=== PATIENT | female | born 1945 | race Caucasian/White ===

== ENCOUNTER 2021-08-24 11:10 | Observation (INO) ==
--- NOTE | 2021-08-24 11:31 | Emergency Department Note ---
Impression & Plan Open fracture of patella, Facial abrasion, Fall from standing ED Provider Note NAME: SPENCER HATCH AGE: 76 SEX: F ARRIVES VIA: Ambulance INFORMANT: Patient ED PROVIDER(S): Jean Paul Hall MD CHIEF COMPLAINT: Fall, knee pain PLAN: Disposition: Admit MEDICAL DECISION MAKING: The patient is a pleasant 76-year-old woman who presents to the emergency part via EMS after having mechanical fall when she was at a graduation green party at her grandson's fraternity and was looking forward and failed to see a step downward falling forward hitting her face and injuring her right knee which she was unable to get up due to the pain. She denies loss of consciousness patient reports she takes a baby aspirin daily but denies any anticoagulation. She reports feeling healthy prior to today and denies fevers, chills, cough congestion, GI or symptoms. The patient reports she is from [facility] near [place] and is visiting for her grandson's graduation. On arrival patient is uncomfortable no acute distress, afebrile stable vital signs. Minor contusion to the right lateral periorbital region with punctate superficial linear abrasions. She also has a superficial linear abrasion to the bridge of the nose. She has deformity of the right knee with range of motion limited secondary to pain. She has a punctate wound of the anterior aspect of the knee. Distal PMS intact. The patient was offered IM morphine for pain however she did not feel this was necessary at this time. Plain film was performed and demonstrated acute displaced transverse patella fracture. Note is made of overlying contusion with soft tissue gas raising the possibility of an open patella fracture. Small joint effusion is also seen. Fracture was further characterized on CT which demonstrates the comminuted displaced fractures of the right patella 2.2 cm of displacement. Soft tissue gas is again noted including gas within the fracture site consistent with open fracture given the patient's punctate wound. No gas is noted within the joint space. I did review the findings with the patient and her son at the bedside. I did inform her that this will require immediate repair with surgery today. It asked whether or not this could wait until she returns home however it was again reiterated that there is an open fracture and so the recommendation is for surgery today. She and her son report that they would be in agreement to stay here for surgery if that was the recommendation from orthopedics. Lab work was then ordered and the patient was ordered for prophylactic antibiotics with ceftriaxone given she had a listed allergy of a rash to amoxicillin. Facial abrasions cleaned and applied bacitracin by RN per my instruction. No repairs required. Case was discussed with DONNA Maza orthopedic surgery. Appreciate recommendations and will take the patient to the OR today. EKG without overt acute ischemia. CXR negative for acute cardiopulmonary process. WBC and platelets wnl. H/H 11.4/33.8 without prior values for comparison. Chemistry without acidosis. Cr. 1.28 without prior values for comparison. Electrolytes unremarkable. Triage Nursing notes reviewed and agree them. Prior medical records reviewed Vital Signs: reviewed and remarkable for no significant abnormalities Differential diagnosis: Fracture, dislocation, contusion, intra-abdominal, pneumothorax, intrathoracic, intracranial, neurologic, compartment syndrome, rhabdomyolysis, as well as other pathologies. ER treatment provided: See below. Diagnostics interpreted by me: ECG: NSR, 88 bpm, no ectopy, no overt ST elevation or depression. Cardiac Monitoring: An order for continuous cardiac monitoring was placed and demonstrated NSR, 88 bpm, no ectopy. Laboratory studies: See below Imaging studies: See below Consultation(s): DONNA Maza orthopedic surgery on-call. HPI: The patient is a pleasant 76-year-old woman who presents to the emergency part via EMS after having mechanical fall when she was at a graduation green party at her grandson's fraternity and was looking forward and failed to see a step downward falling forward hitting her face and injuring her right knee which she was unable to get up due to the pain. She denies loss of consciousness patient reports she takes a baby aspirin daily but denies any anticoagulation. She reports feeling healthy prior to today and denies fevers, chills, cough congestion, GI or symptoms. The patient reports she is from [facility] near [place] and is visiting for her grandson's graduation. ROS: See above HPI for pertinent positives & negatives. A total of 10 systems reviewed and were otherwise negative. VITALS:See Below PHYSICAL EXAMINATION: GENERAL: Awake, alert, uncomfortable-appearing, in no distress HENT: Normocephalic, Minor contusion to the right lateral periorbital region with punctate superficial linear abrasions. She also has a superficial linear abrasion to the bridge of the nose. Oropharynx unremarkable. EYES: Normal conjunctiva. Sclera non-icteric. EOMI. No nystamgus. PEARRL. NECK: Supple. No nuchal rigidity. FROM. No JVD. RESPIRATORY: Clear to auscultation. CARDIAC: Regular rate, normal rhythm. Extremities warm and well perfused. Pulses equal. ABDOMEN: Soft, non-distended. No tenderness to palpation. No rebound or guarding. No masses. RECTAL: Deferred. MUSCULOSKELETAL: Chest examination reveals no tenderness. The back is symmetrical on inspection without obvious abnormality. There is no CVA tenderness to palpation. Deformity of the right knee with range of motion limited secondary to pain. Punctate wound of the anterior aspect of the knee. Distal PMS intact. LOWER EXTREMITIES: Calves are equal size bilaterally and non-tender. No edema. No discoloration. NEURO: Normal sensorium. No sensory or motor deficits noted. SKIN: No rash or jaundice noted. Jean Paul Hall MD Past Med/Surg History Medical History Hyperlipidemia Hypertension Open fracture of patella Family History Other Family history non-contributory Social History Smoking Status: Former smoker Tobacco Type: Cigarettes Smoking End Date: "5 years ago"; Second Hand Exposure: No; Do You Dip or Chew Tobacco: No; Tobacco Cessation Education Requested by Patient: No Hx Alcohol Use: No Hx Substance Use: No Preferred Language: Botswanan Communication Ability: Effective Rural Car[employer] Required: No Beliefs That Will Affect Care: None Current Living Situation: Alone Other Information That Helps Us Care for You: No Feels Safe at Home: Yes Safety Concerns: Feels Safe At This Time Assistive Devices: Glasses and Hearing Aid - Bilateral Assistive Devices Comment: Reading glasses. Allergies Allergies Allergy/AdvReac Type Severity Reaction Status Date / Time amoxicillin [From Augmentin] Allergy Rash Verified 08/24/21 13:58 clavulanic acid Allergy Rash Verified 08/24/21 13:58 [From Augmentin] Home Meds Home Medications Medication Instructions Recorded Confirmed Aspirin Low Dose 81 mg PO DAILY 08/24/21 08/24/21 Lipitor 0 mg PO DAILY 08/24/21 08/24/21 Prevagen 20 mg PO DAILY 08/24/21 08/24/21 biotin 0 mg PO DAILY 08/24/21 08/24/21 calcium carb-Ca gluc 500 mg 0 tab PO DAILY 08/24/21 08/24/21 calcium-magnesium ox-Mg gluc 250 mg tablet (Calcium Magnesium) chondroitin sulfate A sodium 400 0 mg PO DAILY 08/24/21 08/24/21 mg capsule folic acid 800 mcg tablet 0.8 mg PO DAILY 08/24/21 08/24/21 geriatric [id number] 0 tab PO DAILY 08/24/21 08/24/21 glucosamine sulfate 500 mg tablet 500 mg PO DAILY 08/24/21 08/24/21 (Glucosamine) lisinopril 10 1 tab PO DAILY 08/24/21 08/24/21 mg-hydrochlorothiazide 12.5 mg tablet omega 3 350 mg-dha 235 mg-epa 90 0 cap PO DAILY 08/24/21 08/24/21 mg-fish oil 597 mg capsule,delay rel (Ronceverte-3) simvastatin 80 mg tablet 80 mg PO DAILY 08/24/21 08/24/21 vitamin B complex 0 cap PO DAILY 08/24/21 08/24/21 zinc citrate 16.7 mg chewable 0 mg PO DAILY 08/24/21 08/24/21 tablet Previous Rx's Medication Instructions Recorded acetaminophen 500 mg tablet 1,000 mg PO Q8 30 Days #180 tab 08/24/21 (Tylenol Extra Strength) aspirin 81 mg tablet,delayed 81 mg PO BID 30 Days #60 tab 08/24/21 release ondansetron 4 mg disintegrating 4 mg PO Q8H PRN 20 Days #30 tab 08/24/21 tablet tramadol 50 mg tablet 50 - 100 mg PO Q6H PRN #30 tab 08/24/21 Results & Data (ED) Vital Signs Vital Signs - 24 hr 08/24/21 11:14 08/24/21 12:12 08/24/21 15:57 Temperature 36.9 C 36.3 C L Temperature Source Oral Temporal Artery Scan Pulse Rate 97 H Pulse Rate [Apical] 88 94 H Pulse Rhythm [Apical] Regular Respiratory Rate 18 18 18 Respiratory Effort / Characteristics Non-Labored Spontaneous Non-Labored Spontaneous Non-Labored Spontaneous Respiratory Depth Normal Normal Normal Respiratory Pattern Regular Regular Blood Pressure 148/92 H Blood Pressure [Right Arm] 147/79 H 168/96 H Blood Pressure Mean 110 Blood Pressure Mean [Right Arm] 101 120 Blood Pressure Position Sitting Blood Pressure Position [Right Arm] Sitting Semi-fowlers Pulse Oximetry 97 98 94 Oxygen Delivery Method Room Air Room Air Oxymask Oxygen Flow Rate 5 Sepsis Recent Fever Within 48 Hours No Sepsis New/Unexplained Change in Mental Status N/A Sepsis Action Taken by Nursing No Action Required Laboratory Data Attestation: I reviewed the patient's lab results. Result diagrams: 08/24/21 13:01 08/24/21 13:01 Lab Results 08/24/21 08/24/21 08/24/21 Range/Units 13: 13: 13:01 WBC 8.98 (4.8-10.8) K/uL RBC 3.61 L (4.2-5.4) M/uL Hgb 11.4 L (12.0-16.0) g/dL Hct 33.8 L (37-47) % MCV 93.6 (80-100) fL MCH 31.6 (25-34) pg MCHC 33.7 (32-36) g/dL RDW Std Deviation 46.8 H (36.4-46.3) fL RDW Coeff of Jyoti 13.5 (11.5-14.5) % Plt Count 231 (130-400) K/uL MPV 10.0 (7.4-10.4) fL Immature Gran % (Auto) 0.2 % Neut % (Auto) 83.2 % Lymph % (Auto) 9.6 % Boone % (Auto) 6.1 % Eos % (Auto) 0.8 % Baso % (Auto) 0.1 % Neut # (Auto) 7.47 H (1.4-6.5) K/uL Lymph # (Auto) 0.86 L (1.2-3.4) K/uL Boone # (Auto) 0.55 (0.11-0.59) K/uL Eos # (Auto) 0.07 (0-0.5) K/uL Baso # (Auto) 0.01 (0-0.2) K/uL Immature Gran # (Auto) 0.02 (0.00-0.02) K/uL PT 10.4 (9.0-12.0) Seconds INR 1.0 (0.9-1.1) Sodium 135 L (136-145) mmol/L Potassium 3.9 (3.5-5.1) mmol/L Chloride 101 (98-107) mmol/L Carbon Dioxide 25 (21-32) mmol/L Anion Gap 9 (3-11) BUN 26 H (6-23) mg/dl Creatinine 1.28 H (0.6-1.2) mg/dl Est Cr Clr Drug Dosing 37.1 ml/min Est GFR ( Amer) 46.7 ml/min Est GFR (Non-Af Amer) 40.3 ml/min BUN/Creatinine Ratio 20.3 H (10-20) Glucose 98 (70-99(Fasting)) mg/dl Calcium 9.7 (8.5-10.1) mg/dl SARS-CoV-2, RNA, NAAT (NEGATIVE) Blood Type Antibody Screen Antibody Identification Antigen Identification Crossmatch 08/24/21 08/24/21 Range/Units 13:11 13:50 WBC (4.8-10.8) K/uL RBC (4.2-5.4) M/uL Hgb (12.0-16.0) g/dL Hct (37-47) % MCV (80-100) fL MCH (25-34) pg MCHC (32-36) g/dL RDW Std Deviation (36.4-46.3) fL RDW Coeff of Jyoti (11.5-14.5) % Plt Count (130-400) K/uL MPV (7.4-10.4) fL Immature Gran % (Auto) % Neut % (Auto) % Lymph % (Auto) % Boone % (Auto) % Eos % (Auto) % Baso % (Auto) % Neut # (Auto) (1.4-6.5) K/uL Lymph # (Auto) (1.2-3.4) K/uL Boone # (Auto) (0.11-0.59) K/uL Eos # (Auto) (0-0.5) K/uL Baso # (Auto) (0-0.2) K/uL Immature Gran # (Auto) (0.00-0.02) K/uL PT (9.0-12.0) Seconds INR (0.9-1.1) Sodium (136-145) mmol/L Potassium (3.5-5.1) mmol/L Chloride (98-107) mmol/L Carbon Dioxide (21-32) mmol/L Anion Gap (3-11) BUN (6-23) mg/dl Creatinine (0.6-1.2) mg/dl Est Cr Clr Drug Dosing ml/min Est GFR ( Amer) ml/min Est GFR (Non-Af Amer) ml/min BUN/Creatinine Ratio (10-20) Glucose (70-99(Fasting)) mg/dl Calcium (8.5-10.1) mg/dl SARS-CoV-2, RNA, NAAT NEGATIVE (NEGATIVE) Blood Type O Negative Antibody Screen POSITIVE A Antibody Identification Anti-D Antigen Identification C Antigen - NEGATIVE Crossmatch See Detail Administered Medications Acetaminophen (Acetaminophen 500 Mg Tab) 1,000 mg PO Q8 [facility] Stop: 09/23/21 21:59 Last Admin: 08/24/21 21:13 Dose: 1,000 mg Documented by: [id number] Ascorbic Acid (Ascorbic Acid 500 Mg Tab) 500 mg PO BIDM [facility] Stop: 09/23/21 17:29 Last Admin: 08/24/21 18:29 Dose: 500 mg Documented by: [id number] Aspirin (Aspirin 81 Mg Ectab) 81 mg PO BID [facility] Stop: 09/23/21 20:59 Last Admin: 08/24/21 21:13 Dose: 81 mg Documented by: [id number] Docusate Sodium (Docusate Sodium 100 Mg Cap) 100 mg PO BID [facility] Stop: 09/23/21 20:59 Last Admin: 08/24/21 21:13 Dose: 100 mg Documented by: [id number] Sodium Chloride (Nss 1000ml) 1,000 mls @ 100 mls/hr IV .Q10H [facility] Stop: 08/25/21 06:00 Last Admin: 08/24/21 18:30 Dose: 100 mls/hr Documented by: [id number] Cefazolin Sodium (Ancef 1000mg) 1,000 mg in 7.5 mls @ 2.5 mls/min IV Q8H [facility]; Protocol Stop: 08/25/21 06:02 Last Admin: 08/24/21 21:13 Dose: 2.5 mls/min Documented by: [id number] Ketorolac Tromethamine (Ketorolac Tromethamine 15 Mg/Ml Vial) 15 mg IV Q6H [facility] Stop: 08/25/21 12:01 Last Admin: 08/24/21 18:29 Dose: 15 mg Documented by: [id number] Sennosides (Senna 8.6 Mg Tab) 17.2 mg PO HS [facility] Stop: 09/23/21 20:59 Last Admin: 08/24/21 21:13 Dose: 17.2 mg Documented by: [id number] Discontinued Medications Bupivacaine HCl (Bupivacaine 0.5 % 5 Mg/1 Ml Mpf 30ml Vial) Confirm Administered Dose 30 ml .ROUTE .STK-MED ONE Stop: 08/24/21 14:03 Last Admin: 08/24/21 15:33 Dose: 30 ml Documented by: [id number] Cefazolin Sodium (Cefazolin 330 Mg/Ml 1 Gm Vial) Confirm Administered Dose 990 mg .ROUTE .STK-MED ONE Stop: 08/24/21 14:03 Last Admin: 08/24/21 15:33 Dose: 990 mg Documented by: [id number] Diphtheria/Pertussis/Tetanus Vacc (Diphtheria/Tetanus/Pertussis 0.5 Ml Syr/Vial) 0.5 ml IM .ONCE ONE Stop: 08/24/21 12:43 Last Admin: 08/24/21 13:12 Dose: 0.5 ml Documented by: [id number] Epinephrine HCl (Epinephrine Inj 1 Mg/Ml Amp) Confirm Administered Dose 1 mg .ROUTE .STK-MED ONE Stop: 08/24/21 14:02 Last Admin: 08/24/21 15:33 Dose: 0.15 mg Documented by: [id number] Fentanyl Citrate (Fentanyl Citrate 100 Mcg/2 Ml Vial) 50 mcg IV Q5M PRN PRN Reason: PACU Use Only-Pain Stop: 08/24/21 21:56 Last Admin: 08/24/21 16:03 Dose: 50 mcg Documented by: [id number] Fentanyl Citrate (Fentanyl Citrate 100 Mcg/2 Ml Vial) Confirm Administered Dose 100 mcg .ROUTE .STK-MED ONE Stop: 08/24/21 16:05 Last Admin: 08/24/21 18:23 Dose: Not Given Documented by: [id number] Sodium Chloride (Nss 1000ml) 1,000 mls @ 125 mls/hr IV .Q8H [facility] Stop: 09/23/21 12:44 Last Infusion: 08/24/21 16:55 Dose: 0 mls/hr Documented by: [id number] Admin: 08/24/21 12:50 Dose: 125 mls/hr Documented by: [id number] Acetaminophen (Ofirmev) 1,000 mg in 100 mls @ 400 mls/hr IV NOW STA Stop: 08/24/21 12:56 Last Infusion: 08/24/21 13:22 Dose: 0 mls/hr Documented by: [id number] Admin: 08/24/21 12:50 Dose: 400 mls/hr Documented by: [id number] Ceftriaxone Sodium (Rocephin) 2,000 mg in 70 mls @ 140 mls/hr IV NOW STA Stop: 08/24/21 13:13 Last Infusion: 08/24/21 13:22 Dose: 0 mls/hr Documented by: [id number] Admin: 08/24/21 12:52 Dose: 140 mls/hr Documented by: [id number] Cefazolin Sodium (Ancef 1000mg) 1,000 mg in 7.5 mls @ 2.5 mls/min IV ONCE ONE Stop: 08/24/21 15:37 Last Admin: 08/24/21 14:29 Dose: 2.5 mls/min Documented by: [id number] Imaging Data Radiologist's Impression: Head CT 08/24/21 11:22 CT OF THE HEAD WITHOUT CONTRAST CLINICAL HISTORY: Pain following fall. COMPARISON STUDY: No previous studies for comparison. CT DOSE: 537.48 mGy.cm TECHNIQUE: Helical axial images of the head were obtained without IV contrast. Automated exposure control was utilized for the study. A dose lowering technique was utilized adhering to the principles of ALARA. FINDINGS: No acute intracranial hemorrhage, midline shift or mass effect is present. The ventricular system is unremarkable. The basal cisterns are patent. No extra-axial collections are present. There are no findings to suggest acute dural sinus thrombosis or acute territorial infarct. No significant calvarial abnormalities are present. Visualized portions of the sinuses and mastoid air cells are clear. IMPRESSION: 1. No acute intracranial findings. 2. No acute calvarial fracture. ACT 112: Negative or not required by law. Electronically signed by: Adrián Mckenna M.D. 08/24/2021 12:11 PM Hip/Pelvis X-Ray 08/24/21 11:22 XR hip RT 2V w pelvis CLINICAL HISTORY: Pain following fall. COMPARISON: None FINDINGS: Sacroiliac joints and symphysis pubis are intact. There is no acute fracture within the pelvis or hips. Degenerative changes of the symphysis are present. There is mild bilateral hip osteophytosis. IMPRESSION: No acute fracture within the pelvis or hips. ACT 112: Negative or not required by law. Electronically signed by: Adrián Mckenna M.D. 08/24/2021 11:59 AM Knee X-Ray 08/24/21 11:22 XR knee RT 1 or 2V routine CLINICAL HISTORY: fall pain COMPARISON: None FINDINGS: Anterior knee soft tissue swelling is noted. Associated lucencies represent soft tissue gas. There is a small right knee joint effusion. Note is made of an acute displaced comminuted transverse fracture through the patella. Fracture is displaced approximately 2.6 cm. No additional acute fractures are identified. Moderate vascular calcification is incidentally noted. IMPRESSION: 1. Acute displaced transverse patellar fracture. Overlying contusion with soft tissue gas. This raises the possibility of an open patellar fracture. 2. Small joint effusion. ACT 112: Negative or not required by law. Electronically signed by: Adrián Mckenna M.D. 08/24/2021 11:[address] 08/24/21 11:[address] WITHOUT CONTRAST CLINICAL HISTORY: pain, patella fracture COMPARISON STUDY: Right knee radiographs performed earlier today. TECHNIQUE: Axial images of the right knee were obtained without IV contrast. Sagittal and coronal reconstructions were viewed. Automated exposure control was utilized for the study. A dose lowering technique was utilized adhering to the principles of ALARA. FINDINGS: Note is made of an acute comminuted displaced fracture of the right patella. Fracture is predominantly transverse in orientation. Fracture is displaced approximately 2.2 cm. Overlying soft tissue swelling is noted. In addition, soft tissue gas is noted, including gas within the fracture site. This represents an open fracture. No gas within the joint space is noted. A small right knee joint effusion is present. No acute fracture of the proximal right fibula or tibia is identified. There is no acute fracture the distal right femur. Mild degenerative changes of the right knee are present. No suspicious osseous lesions. IMPRESSION: 1. Acute open displaced comminuted right patellar fracture, as above. 2. Small right knee joint effusion. No additional fractures. ACT 112: Negative or not required by law. Electronically signed by: Adrián Mckenna M.D. 08/24/2021 12:19 PM Chest X-Ray 08/24/21 13:00 XR chest 1V portable CLINICAL HISTORY: Preoperative evaluation. COMPARISON STUDY: No previous studies for comparison. FINDINGS: Patient is mildly rotated. Linear left basilar opacity favors atelectasis or scarring. No consolidation to suggest pneumonia. Possible calcified granuloma within the right mid lung. Cardiac size is normal. No andrea dence for pulmonary edema. IMPRESSION: No acute cardiopulmonary findings. ACT 112: Negative or not required by law. Electronically signed by: Adrián Mckenna M.D. 08/24/2021 1:15 PM Discharge Plan Visit Data Chief Complaint: Fall Stated Complaint: GLF ED Provider: Jean Paul Hall Discharge Problem: Open fracture of patella, Facial abrasion, Fall from standing Patient Disposition: Admitted As Inpatient Discharge Instructions Interventions: ED Discharge Assessment Last Done: 08/24/21 13:57 Discharge Problem: Open fracture of patella Qualifiers: Encounter type: initial encounter Open fracture type: open type I or II Fracture morphology: comminuted Fracture alignment: displaced Laterality: right Qualified Code(s): S82.041B - Displaced comminuted fracture of right patella, initial encounter for open fracture type I or II Facial abrasion Qualifiers: Encounter type: initial encounter Qualified Code(s): S00.81XA - Abrasion of other part of head, initial encounter Fall from standing Qualifiers: Encounter type: initial encounter Qualified Code(s): W19.XXXA - Unspecified fall, initial encounter
--- NOTE | 2021-08-24 12:00 | XRay Report ---
XR hip RT 2V w pelvis CLINICAL HISTORY: Pain following fall. COMPARISON: None FINDINGS: Sacroiliac joints and symphysis pubis are intact. There is no acute fracture within the pe lvis or hips. Degenerative changes of the symphysis are present. There is mild bilateral hip osteophy tosis. IMPRESSION: No acute fracture within the pelvis or hips. ACT 112: Negative or not required by law. Electronically signed by: Adrián Mckenna M.D. 08/24/2021 11:59 AM
--- NOTE | 2021-08-24 12:00 | XRay Report ---
XR knee RT 1 or 2V routine CLINICAL HISTORY: fall pain COMPARISON: None FINDINGS: Anterior knee soft tissue swelling is noted. Associated lucencies represent soft tissue ga s. There is a small right knee joint effusion. Note is made of an acute displaced comminuted transver se fracture through the patella. Fracture is displaced approximately 2.6 cm. No additional acute frac tures are identified. Moderate vascular calcification is incidentally noted. IMPRESSION: 1. Acute displaced transverse patellar fracture. Overlying contusion with soft tissue gas. This raise s the possibility of an open patellar fracture. 2. Small joint effusion. ACT 112: Negative or not required by law. Electronically signed by: Adrián Mckenna M.D. 08/24/2021 11:58 AM
--- NOTE | 2021-08-24 12:13 | CT Scan Report ---
CT OF THE HEAD WITHOUT CONTRAST CLINICAL HISTORY: Pain following fall. COMPARISON STUDY: No previous studies for comparison. CT DOSE: 537.48 mGy.cm TECHNIQUE: Helical axial images of the head were obtained without IV contrast. Automated exposure con trol was utilized for the study. A dose lowering technique was utilized adhering to the principles o f ALARA. FINDINGS: No acute intracranial hemorrhage, midline shift or mass effect is present. The ventricular system is unremarkable. The basal cisterns are patent. No extra-axial collections are present. There are no findings to suggest acute dural sinus thrombosis or acute territorial infarct. No significant calvarial abnormalities are present. Visualized portions of the sinuses and mastoid air cells are kusum ar. IMPRESSION: 1. No acute intracranial findings. 2. No acute calvarial fracture. ACT 112: Negative or not required by law. Electronically signed by: Adrián Mckenna M.D. 08/24/2021 12:11 PM
--- NOTE | 2021-08-24 12:22 | CT Scan Report ---
RIGHT KNEE CT WITHOUT CONTRAST CLINICAL HISTORY: pain, patella fracture COMPARISON STUDY: Right knee radiographs performed earlier today. TECHNIQUE: Axial images of the right knee were obtained without IV contrast. Sagittal and coronal rec onstructions were viewed. Automated exposure control was utilized for the study. A dose lowering elsie hnique was utilized adhering to the principles of ALARA. FINDINGS: Note is made of an acute comminuted displaced fracture of the right patella. Fracture is pr edominantly transverse in orientation. Fracture is displaced approximately 2.2 cm. Overlying soft tis darlene swelling is noted. In addition, soft tissue gas is noted, including gas within the fracture site. This represents an open fracture. No gas within the joint space is noted. A small right knee joint e ffusion is present. No acute fracture of the proximal right fibula or tibia is identified. There is n o acute fracture the distal right femur. Mild degenerative changes of the right knee are present. No suspicious osseous lesions. IMPRESSION: 1. Acute open displaced comminuted right patellar fracture, as above. 2. Small right knee joint effusion. No additional fractures. ACT 112: Negative or not required by law. Electronically signed by: Adrián Mckenna M.D. 08/24/2021 12:19 PM
[2021-08-24] MEDS ORDERED: DIPHTHERIA/TETANUS/PERTUSSIS 0.5 ML SYR/VIAL IM ONE (12:42)
[2021-08-24] MEDS ORDERED: ACETAMINOPHEN 1,000 MG/100 ML VIAL IV STA (12:42)
[2021-08-24] MEDS ORDERED: cefTRIAXone SODIUM 2,000 MG/70 ML BAG IV STA (12:44)
[2021-08-24] MEDS ORDERED: SODIUM CHLORIDE 0.9% 1000ML 1,000 ML IV SCH ×2 (12:45→17:02)
--- NOTE | 2021-08-24 13:17 | XRay Report ---
XR chest 1V portable CLINICAL HISTORY: Preoperative evaluation. COMPARISON STUDY: No previous studies for comparison. FINDINGS: Patient is mildly rotated. Linear left basilar opacity favors atelectasis or scarring. No c onsolidation to suggest pneumonia. Possible calcified granuloma within the right mid lung. Cardiac si ze is normal. No evidence for pulmonary edema. IMPRESSION: No acute cardiopulmonary findings. ACT 112: Negative or not required by law. Electronically signed by: Adrián Mckenna M.D. 08/24/2021 1:15 PM
[2021-08-24 13:20] LABS: Basophils # (auto) 0.01 K/uL (0-0.2); Basophils % (auto) 0.1 %; Eosinophils # (auto) 0.07 K/uL (0-0.5); Eosinophils % (auto) 0.8 %; Hematocrit (blood only) 33.8 % (37-47); Hemoglobin 11.4 g/dL (12.0-16.0); Immature Granulocytes # (auto) 0.02 K/uL (0.00-0.02); Immature Granulocytes % (auto) 0.2 %; Lymphocytes # (auto) 0.86 K/uL (1.2-3.4); Lymphocytes % (auto) 9.6 %; Mean Corpuscular Hemoglobin 31.6 pg (25-34); Mean Corpuscular Hgb Conc 33.7 g/dL (32-36); Mean Corpuscular Volume 93.6 fL (80-100); Monocytes # (auto) 0.55 K/uL (0.11-0.59); Monocytes % (auto) 6.1 %; Neutrophils # (auto) 7.47 K/uL (1.4-6.5); Neutrophils % (auto) 83.2 %; Platelet Count 231 K/uL (130-400); RDW Coefficient of Variation 13.5 % (11.5-14.5); RDW Standard Deviation 46.8 fL (36.4-46.3); Red Blood Count 3.61 M/uL (4.2-5.4); White Blood Count 8.98 K/uL (4.8-10.8)
[2021-08-24] MEDS ORDERED: fentaNYL citrate 100 MCG/2 ML VIAL ONE ×3 (13:26→16:04)
[2021-08-24] MEDS ORDERED: MIDAZOLAM HCL 1 MG/ML 2ML VIAL ONE (13:26)
[2021-08-24] MEDS ORDERED: PROPOFOL IV EMULSION 10 MG/ML 20 ML VIAL IV ONE (13:30)
[2021-08-24] MEDS ORDERED: ONDANSETRON INJ 2 MG/ML 2 ML VIAL ONE (13:30)
[2021-08-24] MEDS ORDERED: LIDOCAINE 2% 2 ML VIAL/AMP(20MG/ML) INFIL ONE ×2 (13:30→14:32)
--- NOTE | 2021-08-24 13:41 | Anesthesiology Consultation ---
Date of Service August 24, 2021 Assessment & Plan (1) Encounter for pre-operative examination: Chart Review Chart Review: md physician dermatologist initiated History Surgery Operation Date: 08/24/21 13:15 Proposed Procedures p Poly Exchange - Chaitanya Baldwin MD Height/Weight Height: 5 ft 8 in Weight: 72.9 kg Allergies Allergy/AdvReac Type Severity Reaction Status Date / Time amoxicillin [From Augmentin] Allergy Rash Unverified 08/24/21 11:41 clavulanic acid Allergy Rash Unverified 08/24/21 11:41 [From Augmentin] Medications Home Medications Medication Instructions Recorded Confirmed Last Taken Aspirin Low Dose 81 mg PO DAILY 08/24/21 08/24/21 08/24/21 Lipitor 0 mg PO DAILY 08/24/21 08/24/21 08/24/21 Prevagen 20 mg PO DAILY 08/24/21 08/24/21 08/24/21 biotin 0 mg PO DAILY 08/24/21 08/24/21 08/24/21 calcium carb-Ca gluc 500 mg 0 tab PO DAILY 08/24/21 08/24/21 08/24/21 calcium-magnesium ox-Mg gluc 250 mg tablet (Calcium Magnesium) chondroitin sulfate A sodium 400 0 mg PO DAILY 08/24/21 08/24/21 08/24/21 mg capsule folic acid 800 mcg tablet 0.8 mg PO DAILY 08/24/21 08/24/21 08/24/21 geriatric egfkfxrx-iadj-flwt 0 tab PO DAILY 08/24/21 08/24/21 08/24/21 glucosamine sulfate 500 mg tablet 500 mg PO DAILY 08/24/21 08/24/21 08/24/21 (Glucosamine) lisinopril 10 1 tab PO DAILY 08/24/21 08/24/21 08/24/21 mg-hydrochlorothiazide 12.5 mg tablet omega 3 350 mg-dha 235 mg-epa 90 0 cap PO DAILY 08/24/21 08/24/21 08/24/21 mg-fish oil 597 mg capsule,delay rel ([place]-3) simvastatin 80 mg tablet 80 mg PO DAILY 08/24/21 08/24/21 08/24/21 vitamin B complex 0 cap PO DAILY 08/24/21 08/24/21 08/24/21 zinc citrate 16.7 mg chewable 0 mg PO DAILY 05/12/0808/24/21 08/24/21 tablet Active Medications Generic Name Dose Route Start Last Admin Trade Name Justus PRN Reason Stop Dose Admin Sodium Chloride 1,000 mls @ 125 mls/hr 08/24/21 12:45 08/24/21 12:50 Nss 1000ml IV 09/23/21 12:44 125 mls/hr .Q8H MARIANNA Administration Social History Smoking Status: Former smoker Physical Exam Vital Signs Last Vital Signs Temp 98.4 F 08/24/21 11:14 Pulse 88 08/24/21 12:12 Resp 18 08/24/21 12:12 BP 147/79 H 08/24/21 12:12 Pulse Ox 98 08/24/21 12:12 Testing Laboratory Results 08/24/21 13:01 Electrocardiogram Date: 08/24/21 Normal sinus rhythm, rate 88 bpm Possible Left atrial enlargement Borderline ECG No previous ECGs available Chest X-Ray Date: 08/24/21 Findings: + NAD
[2021-08-24 13:43] LABS: Prothrombin Time 10.4 Seconds (9.0-12.0)
[2021-08-24 13:51] LABS: BUN Creatinine Ratio 20.3 (10-20); Calcium 9.7 mg/dl (8.5-10.1); Creatinine Clr Calc Pharmacy 37.1 ml/min; Est GFR (African American) 46.7 ml/min; Est GFR (Non-African American) 40.3 ml/min; Potassium 3.9 mmol/L (3.5-5.1)
--- NOTE | 2021-08-24 13:51 | History & Physical Report ---
Date of Service August 24, 2021 Assessment & Plan (1) Open fracture of patella: Patient has a grade 1 open displaced comminuted patella fracture with disruption of the extensor mechanism. She is got some abrasions on her face but nothing to serious that needs more urgent management. She has been given some Rocephin in the ER. Tetanus is up-to-date. I discussed treatment options with the patient today. Considering this open the nature of this fracture this is some that is urgent and needs to be taken the operating room for irrigation debridement and addressing the fracture. This gives her best chance of a good and most successful recovery. Based on the fracture which probably can be required taking out some of the pieces and repairing the extensor mechanism. We will going proceed with irrigation debridement, partial patellectomy me, extensor mechanism repair. The risk meant this procedure explained the patient could been a limited to DVT PE infection neurological injury vascular bleeding palm pain incomplete relief of symptoms need for further surgery in future and failure of the repair. Patient understands and desires to proceed informed consent was obtained. History of Present Illness Chief Complaint: . Right knee injury. Primary Care Provider: Yvonne Bravo . Patient is 76-year-old female from the [facility] who was up. Here at her grandsons graduation when she was out walking and missed a step and stumbled and landed on her right knee and also on her face. This happened earlier today. She had the cute onset of pain and discomfort. She was brought to the emergency room where x-rays revealed a displaced patella fracture. There is some air in the subcu tissues with a's very small puncture wound. We are consulted for evaluation. She denies any pre-existing knee problems. Says she did hit her face but no loss of consciousness and no neck pain. Her last food was a breakfast sandwich at about 9:00 this morning. Allergies Allergy/AdvReac Type Severity Reaction Status Date / Time amoxicillin [From Augmentin] Allergy Rash Unverified 08/24/21 11:41 clavulanic acid Allergy Rash Unverified 08/24/21 11:41 [From Augmentin] Home Medications Medication Instructions Recorded Confirmed Type Aspirin Low Dose 81 mg PO DAILY 08/24/21 08/24/21 History Lipitor 0 mg PO DAILY 08/24/21 08/24/21 History Prevagen 20 mg PO DAILY 08/24/21 08/24/21 History biotin 0 mg PO DAILY 08/24/21 08/24/21 History calcium carb-Ca gluc 500 mg 0 tab PO DAILY 08/24/21 08/24/21 History calcium-magnesium ox-Mg gluc 250 mg tablet (Calcium Magnesium) chondroitin sulfate A sodium 400 0 mg PO DAILY 08/24/21 08/24/21 History mg capsule folic acid 800 mcg tablet 0.8 mg PO DAILY 08/24/21 08/24/21 History geriatric kqqlnnee-fluv-jacg 0 tab PO DAILY 08/24/21 08/24/21 History glucosamine sulfate 500 mg tablet 500 mg PO DAILY 08/24/21 08/24/21 History (Glucosamine) lisinopril 10 1 tab PO DAILY 08/24/21 08/24/21 History mg-hydrochlorothiazide 12.5 mg tablet omega 3 350 mg-dha 235 mg-epa 90 0 cap PO DAILY 08/24/21 08/24/21 History mg-fish oil 597 mg capsule,delay rel ([place]-3) simvastatin 80 mg tablet 80 mg PO DAILY 08/24/21 08/24/21 History vitamin B complex 0 cap PO DAILY 08/24/21 08/24/21 History zinc citrate 16.7 mg chewable 0 mg PO DAILY 08/24/21 08/24/21 History tablet Past Med/Surg History Medical History (Updated 08/24/21 @ 13:49 by Chaitanya Baldwin MD) Open fracture of patella Social History Smoking Status: Former smoker Tobacco Type: Cigarettes Feels Safe at Home: Yes Review of Systems All systems reviewed & are unremarkable except as noted in HPI & below. Physical Exam . Physical examination reveals a pleasant elderly female lying in bed in no acute distress. Her HEENT exam reveals multiple abrasions on her face and a bit of a black and blue eye on the right side. All abrasions appear pretty superficial. Her neck is supple with no lymphadenopathy. She has no cervical spine tenderness and normal neck range of motion. Lungs clear to auscultation. Heart is a regular rate and rhythm. Ab soft nontender nondistended extremities grossly neuro vas intact up as follows. General musculoskeletal exam reveals painless palpation and range of motion of her cervical and thoracic and lumbar spine. She does have some abrasions on her face. She has painless and full range of motion of both upper extremities and left lower extremity. Examination of the right knee and leg reveals a significant bruise and hematoma the front of her knee. There is to the small areas of a puncture wound with some dried blood on the front of her knee. She is unable to do a straight leg raise. There is no varus or valgus instability. She can dorsiflex and plantarflex her foot appropriately. Results & Data Results & Data Laboratory Results . Diagnostic Findings . X-rays of the right knee reveal a comminuted displaced patella fracture. It severely comminuted. There is a little bit of air in the subcutaneous tissues and a point to the inferior pole of the patella. CT scan confirms a comminuted patella fracture. There is some air in the subcutaneous tissues as well. PG Care Time/CCT Total # of Minutes Spent Total Time Spent with Patient: Total time spent is greater than 50% in coordination of care (as documented) at patient's floor/unit and/or counseling patient: Coding Level of Care Code 19884 Initial Inpt Care Lvl 3 Diagnoses Open fracture of patella S82.009B
[2021-08-24] MEDS ORDERED: ONDANSETRON INJ 2 MG/ML 2 ML VIAL IV PRN ×2 (13:56→17:02)
[2021-08-24] MEDS ORDERED: ePHEDrine sulfate 50 MG/ML AMP IV PRN (13:56)
[2021-08-24] MEDS ORDERED: ATROPINE SULFATE 0.1 MG/ML 10ML SYR IV PRN (13:56)
[2021-08-24] MEDS ORDERED: fentaNYL citrate 100 MCG/2 ML VIAL IV PRN (13:56)
[2021-08-24] MEDS ORDERED: EPINEPHrine INJ 1 MG/ML AMP ONE (14:01)
[2021-08-24] MEDS ORDERED: ceFAZolin 330 MG/ML 1 GM VIAL ONE ×2 (14:02→14:28)
[2021-08-24] MEDS ORDERED: BUPIVACAINE 0.5 % 5 MG/1 ML MPF 30ML VIAL ONE (14:02)
[2021-08-24] MEDS ORDERED: PHENYLEPHRINE HCL 10 MG/ML VIAL ONE (14:32)
[2021-08-24] MEDS ORDERED: SUCCINYLCHOLINE CHLORIDE 20 MG/ML 10 ML VIAL IV ONE (14:33)
[2021-08-24] MEDS ORDERED: DEXAMETHASONE SOD INJ 4 MG/ML VIAL ONE (14:33)
[2021-08-24] MEDS ORDERED: ROCURONIUM BROMIDE 10 MG/ML 5 ML VIAL IV ONE (14:33)
[2021-08-24] MEDS ORDERED: ceFAZolin 1000MG 1,000 MG/7.5 ML SYR IV ONE (15:35)
--- NOTE | 2021-08-24 16:05 | Operative Report ---
PG Post Operative Report Pre & Post Diagnosis Operation Date: 08/24/21 13:15 Pre-Op Diagnosis: Grade 1 open severely comminuted fracture of patella Post-Op Diagnosis: Grade 1 open severely comminuted fracture of patella I identified the patient and participated in the time-out.: Yes Procedure Operation Date: 08/24/21 13:15 Actual Procedures p right knee irrigation and debridement and partial patellectomy and extensor mechanism repair - Chaitanya Baldwin MD Surgeon Chaitanya Baldwin MD Owner Oral Surgeon None Estimated Blood Loss 20 Findings Consistent with Post-Op Diagnosis Operative findings revealed a small puncture wound through the anterior aspect of the knee. There is no gross contamination. Large hemarthrosis. Severely comminuted patella fracture with multiple very small pieces with osteopenia. Specimens None Anesthesia Type General Complications none Disposition Accompanied Patient To Recovery: No Indications Patient is a 76-year-old female was visiting from out of town for her grandsons graduation. As she was at the [employer] when she stumbled over a step and landed and injured her right knee. She cute onset of pain patient brought the emergency room x-ray revealed a comminuted displaced patella fracture. She had some small little abrasions and wounds in the front of her knee and there was clearly an area in the fracture site on x-ray and CT scan. The patient indicated for urgent irrigation debridement and partial patellectomy me and extensor mechanism repair. Description of Procedure The patient was taken to the operating, identified, placed on the operating table supine position protectors were properly padded. She did get Rocephin in the ER and 1 g of Ancef in the operating room. A general anesthetic was imple mented. A right thigh tent was then placed. The right lower extremity was then scrubbed with Hibiclens then prepped with ChloraPrep and draped in usual sterile fashion. The right leg was elevated exsanguinated with use of an Esmarch in terms playset 300 mmHg. An anterior approach of the right knee was then performed through an anterior incision centered over the patella and the fracture site. Sharp dissection scalp through subcutaneous tissue directly down the fracture site. Full-thickness flaps were developed medially and laterally. I then irrigated the wound extensively. We irrigated the end of the patella and also curetted it. I assessed the comminution there was severe comminution particular the inferior pole so I elected to take out the inferior pole of the patella. The superior pole was by far the largest piece. I irrigated the bone edges. We irrigated the entire knee joint extensively. We then changed gloves. I then irrigated the entire wound again with 3 L of pulsatile lavage solution. Attention then drawn toward the repair. 3 drill holes were drilled made through the inferior pole patella extending from the inferior to the superior pole. Some passing sutures were placed. I used to a #[address] suture in the patella tendon using a Krakw type stitch. 1 suture was placed medially and 1 laterally. The sutures were then passed through the patella using the previously placed passing sutures. The patella was pulled down and tied to the patella tendon and we got excellent approximation. I could then bend the knee to 90 degrees without any signs of any gapping at all. I then repaired the medial and lateral retinacular extensions with #1 PDS suture in a hgibfx-pl-ohpii fashion. The knee was injected with 30 cc of half percent Marcaine with epinephrine. The tourniquet was let down for turn time 40 minutes. Hemostasis assured use electrocautery. The subcutaneous tissues were then closed with 2-0 Vicryl suture in a buried i nterrupted fashion. The skin was closed with a 3-0 nylon suture in a combination of horizontal mattress and simple fashion sutures. The was then cleaned and dried and a sterile dressing was Xeroform, 4 x 4's, ABD pad, sterile cast padding, Dion bandage, knee immobilizer were applied. Patient then brought out of general anesthesia and transferred to the recovery room in stable condition. The patient tolerated the procedure well and there were no complications. I attest to the content of the Intraoperative Record and any orders documented therein. Any exceptions are noted below.
--- NOTE | 2021-08-24 16:38 | Anesthesiology Progress Note ---
Date of Service August 24, 2021 Anesthesia Post Procedure Vital Signs Vital Signs: Temp Pulse Pulse Resp BP BP Pulse Ox 08/24/21 16:25 96 H 16 156/86 H 95 08/24/21 16:15 96 H 16 158/80 H 95 08/24/21 16:05 94 H 18 156/93 H 97 08/24/21 15:57 97.3 F L 94 H 18 168/96 H 94 08/24/21 12:12 88 18 147/79 H 98 08/24/21 11:14 98.4 F 97 H 18 148/92 H 97 Pain Intensity Right Knee: Pain Intensity: 3 Transfer of Care Handoff Completed per policy Notes Mental Status: alert / awake / arousable and participated in evaluation Patient Amnestic to Procedure: Yes Nausea / Vomiting: adequately controlled Pain: adequately controlled Airway Patency, RR, SpO2: stable & adequate BP & HR: stable & adequate Hydration State: stable & adequate Anesthetic Complications: no major complications apparent and Pt Satisfied with anesthetic care
[2021-08-24] MEDS ORDERED: NALOXONE HCL 0.4 MG/1 ML VIAL/CARP IV PRN (17:02)
[2021-08-24] MEDS ORDERED: MAGNESIUM HYDROXIDE SUSP 30 ML UDC PO PRN (17:02)
[2021-08-24] MEDS ORDERED: HYDROmorphone INJ 0.5 MG/0.5 ML SYR IV PRN (17:02)
[2021-08-24] MEDS ORDERED: METOCLOPRAMIDE HCL INJ 5 MG/ML 2 ML VIAL IV PRN (17:02)
[2021-08-24] MEDS ORDERED: traMADol HCL 50 MG TABLET PO PRN (17:02)
[2021-08-24] MEDS ORDERED: bisacodyL 10 MG SUPP PR PRN (17:02)
[2021-08-24] MEDS ORDERED: ALUMINUM/MAGNESIUM SUSP 30 ML UDC PO PRN (17:02)
[2021-08-24] MEDS: ASCORBIC ACID 500 MG TAB PO SCH (18:29)
[2021-08-24] MEDS: KETOROLAC TROMETHAMINE 15 MG/ML VIAL IV SCH ×2 (18:29→23:33)
[2021-08-24] MEDS ORDERED: SENNA 8.6 MG TAB PO SCH (21:00)
[2021-08-24] MEDS: DOCUSATE SODIUM 100 MG CAP PO SCH (21:13)
[2021-08-24] MEDS: ACETAMINOPHEN 500 MG TAB PO SCH (21:13)
[2021-08-24] MEDS: ceFAZolin 1000MG 1,000 MG/7.5 ML SYR IV SCH (21:13)
[2021-08-24] MEDS: ASPIRIN 81 MG ECTAB PO SCH (21:13)
[2021-08-24 21:35] LABS: Appearance Urine Clear (Clear); Bacteria Urine Automated Negative (Negative); Bilirubin Urine Negative (Negative); Blood Urine Negative (Negative); Cast Urine Automated 0 /lpf (0-5); Color Urine Yellow; Glucose Urine UA Negative (Negative); Ketones Urine Negative (Negative); Leukocyte Esterase Urine Trace (Negative); Nitrite Urine Negative (Negative); Protein Urine Negative (Negative); RBC Urine Automated 0-4 /hpf (0-4); Specific Gravity Urine 1.012 (1.000-1.030); Urobilinogen Urine Negative (Negative)
[2021-08-25] MEDS: KETOROLAC TROMETHAMINE 15 MG/ML VIAL IV SCH (06:14)
[2021-08-25] MEDS: ceFAZolin 1000MG 1,000 MG/7.5 ML SYR IV SCH (06:14)
[2021-08-25] MEDS: ACETAMINOPHEN 500 MG TAB PO SCH (06:14)
--- NOTE | 2021-08-25 06:17 | Electrocardiogram Report ---
Test Reason : Blood Pressure : / mmHG Vent. Rate : 088 BPM Atrial Rate : 088 BPM P-R Int : 188 ms QRS Dur : 088 ms QT Int : 378 ms P-R-T Axes : 079 039 056 degrees QTc Int : 457 ms Normal sinus rhythm Possible Left atrial enlargement Borderline ECG No previous ECGs available Confirmed by Bala Garcia ([id number]) on 08/25/2021 6:17:30 AM Referred By: REFERRED SELF Confirmed By:Bala Garcia
[2021-08-25 07:03] LABS: Hematocrit (blood only) 29.1 % (37-47); Hemoglobin 9.8 g/dL (12.0-16.0); Mean Corpuscular Hemoglobin 31.5 pg (25-34); Mean Corpuscular Hgb Conc 33.7 g/dL (32-36); Mean Corpuscular Volume 93.6 fL (80-100); Platelet Count 210 K/uL (130-400); RDW Coefficient of Variation 13.6 % (11.5-14.5); RDW Standard Deviation 46.7 fL (36.4-46.3); Red Blood Count 3.11 M/uL (4.2-5.4)
[2021-08-25 07:09] LABS: BUN Creatinine Ratio 18.2 (10-20); Calcium 8.8 mg/dl (8.5-10.1); Creatinine Clr Calc Pharmacy 39.3 ml/min; Est GFR (Non-African American) 43.1 ml/min; Potassium 4.3 mmol/L (3.5-5.1)
--- NOTE | 2021-08-25 08:27 | Progress Notes ---
SUBJECTIVE: A 76-year-old white female postoperative day 1 from irrigation and debridement, partial patellectomy and extensor mechanism repair for grade 1 open patella fracture. She is doing well this morning. No real pain. Hoping to get out of the hospital. OBJECTIVE: VITAL SIGNS: Temperature 36.9. Vital signs are stable. GENERAL: Shows a pleasant, elderly female. I did wake her this morning. LUNGS: Clear to auscultation. HEART: Has a regular rate and rhythm. ABDOMEN: Soft, nontender, nondistended. EXTREMITIES: Grossly neurovascularly intact except as follows. Examination of the right leg reveals the knee immobilizer and dressing to be clean, dry and intact. She can dorsiflex and plantarflex her foot appropriately. She is neurologically intact. LABORATORY DATA: Hemoglobin 9.8. Hematocrit 29.1. Electrolytes are stable. ASSESSMENT: A 76-year-old white female postoperative day 1 from irrigation and debridement and a par tial patellectomy and extensor mechanism repair. Grade 1 open patella fracture. She is doing pretty well. Pain is controlled. She is neurologically intact. She is going to get 24 hours of antibioti cs. PLAN: 1. DVT prophylaxis includes thigh-high TEDs, SCDs, and aspirin twice a day for a month. 2. PT/OT. She can weight bear as tolerated in the knee immobilizer. No knee range of motion at all for the first 2 weeks. 3. Pain control, doing okay with current pain regimen. 4. Disposition: We are going to discharge her to home after therapy this morning and she gets 2 dos es of postoperative Ancef. Job ID: [id number]
[2021-08-25] MEDS ORDERED: FOLIC ACID 400 MCG TAB PO SCH (09:00)
[2021-08-25] MEDS ORDERED: LISINOPRIL/HCTZ 10/12.5MG TAB PO SCH (09:00)
[2021-08-25] MEDS ORDERED: MULTIVITAMIN TAB PO SCH (09:00)
[2021-08-25] MEDS ORDERED: GLUCOSAMINE SULFATE 500 MG CAP PO SCH (09:00)
[2021-08-25] MEDS ORDERED: SIMVASTATIN 80 MG TAB PO SCH (09:00)
[2021-08-25] MEDS: DOCUSATE SODIUM 100 MG CAP PO SCH (09:10)
[2021-08-25] MEDS: ASCORBIC ACID 500 MG TAB PO SCH (09:10)
[2021-08-25] MEDS: ASPIRIN 81 MG ECTAB PO SCH (09:10)
== END 2021-08-25 10:52 | disposition home or self-care (01) ==
LOC: ED 11:10 → ASU 13:57 → 3E 13:57